=== PATIENT | female | born 1965 | race Hispanic/Latino ===

== ENCOUNTER 2022-07-04 16:40 | Observation (INO) | payer BC, SELFPAY ==
[2022-07-04] MEDS ORDERED: Dextrose 5% in Water 1,000 ML IV PRN (19:15)
[2022-07-04] MEDS ORDERED: Senokot S 8.6-50 MG TAB PO PRN (19:15)
[2022-07-04] MEDS ORDERED: Acetaminophen 325 MG TAB PO PRN (19:15)
[2022-07-04] MEDS ORDERED: Calcium Carbonate 500 MG ChewTAB PO PRN (19:15)
[2022-07-04] MEDS ORDERED: Zolpidem Tartrate 5 MG TAB PO PRN (19:15)
[2022-07-04] MEDS ORDERED: Guaifenesin DM 100-10/5 ML UDCUP PO PRN (19:15)
[2022-07-04] MEDS ORDERED: Dextrose 50% Abboject 50 ML SYRINGE SLOW IVP PRN (19:15)
[2022-07-04] MEDS ORDERED: Ondansetron PF 4 MG/2 ML Vial IVP PRN (19:15)
[2022-07-04] MEDS ORDERED: Nitroglycerin 0.4 MG TAB (25 Tab Bottle) SL PRN (19:18)
[2022-07-04] MEDS ORDERED: Potassium Chloride 20 MEQ TAB PO SCH (19:30)
[2022-07-04 20:03] VITALS: BMI 31.6
[2022-07-04] MEDS: Lisinopril 20 MG TAB PO SCH (20:53)
[2022-07-04] MEDS: Metoprolol Tartrate 25 MG TAB PO SCH (20:53)
[2022-07-04] MEDS: metFORMIN 500 MG TAB PO SCH (20:54)
[2022-07-04] MEDS ORDERED: Lantus 1000 UNITS/10 ML VIAL SC SCH (21:00)
[2022-07-04] MEDS ORDERED: Atorvastatin Calcium 20 MG TAB PO SCH (21:00)
[2022-07-05 05:35] LABS: Anion Gap 14 mmol/L (10-20); BUN (Urea Nitrogen) 11 mg/dL (9.8-20.1); Calc. Creatinine Clearance 122 mL/min (70-130); Calcium 9.6 mg/dL (7.8-10.44); Carbon Dioxide 23 mmol/L (22-29); Cardiac Risk 4.9 (Less than 4.5); Chloride 107 mmol/L (98-107); Cholesterol 151 mg/dl (< 200 Desired); Estimated GFR 106; Glucose 170 mg/dL (70-105); HDL Cholesterol 31 mg/dL (>60 Neg Risk); Potassium 4.2 mmol/L (3.5-5.1); Sodium 140 mmol/L (136-145); Triglycerides 568 mg/dL (Less than 150)
[2022-07-05 06:16] LABS: LDL Cholesterol, Calculated 68 mg/dL
[2022-07-05] MEDS ORDERED: Enoxaparin Sodium 40 MG/0.4 ML SYRINGE SC SCH (09:00)
[2022-07-05] MEDS ORDERED: glyBURIDE 5 MG TAB PO SCH (09:00)
[2022-07-05] MEDS: metFORMIN 500 MG TAB PO SCH (09:00)
[2022-07-05] MEDS ORDERED: Aspirin 81 mg Enteric Coated Tablet PO SCH (09:00)
[2022-07-05] MEDS: Metoprolol Tartrate 25 MG TAB PO SCH (09:01)
[2022-07-05] MEDS: Lisinopril 20 MG TAB PO SCH (09:02)
[2022-07-05] MEDS ORDERED: hydrALAZINE 20 MG/ML VIAL SLOW IVP PRN (10:07)
[2022-07-05] MEDS ORDERED: Amlodipine 5 MG TAB PO SCH (10:15)
[2022-07-05] MEDS: HumaLOG 300 UNITS/3 ML VIAL SC PRN ×2 (11:47→16:08)
[2022-07-05 16:05] VITALS: TEMP 97.3
[2022-07-05 16:09] VITALS: BP 162/86
[2022-07-05] MEDS ORDERED: Carvedilol 6.25 MG TAB PO SCH (17:00)
[2022-07-06] MEDS ORDERED: Amlodipine 5 MG TAB PO SCH (09:00)
== END 2022-07-05 16:38 | disposition home or self-care (01) ==
LOC: CSHTELE 16:40
PROVIDERS: ADMIT Hospitalist; ATTEND Hospitalist
DX: R07.89 Other chest pain (principal); I16.0 Hypertensive urgency; I10 Essential (primary) hypertension; E11.65 Type 2 diabetes mellitus with hyperglycemia; E78.5 Hyperlipidemia, unspecified; K21.9 Gastro-esophageal reflux disease without esophagitis; E87.6 Hypokalemia; Z79.4 Long term (current) use of insulin; Z79.899 Other long term (current) drug therapy; R06.02 Shortness of breath; R53.83 Other fatigue; Z88.5 Allergy status to narcotic agent; Z88.8 Allergy status to other drugs, medicaments and biological substances
CPT/HCPCS: 36415; 36416; 80048; 80061; 83036; 84484; 85379; 93306; 96372; G0378; J1650; J1815